=== PATIENT | female | born 1985 | race Caucasian/White ===

== ENCOUNTER 2017-01-25 04:20 | Emergency (ER) | payer MEDICAID ==
[~2017-01-25] VITALS: Ht 157.5 cm; Wt 52.2 kg
[~2017-01-25 04:20] MED LIST: CIPR-173 PO; IBUP800T24 PO; NORPTMEDS CO
[2017-01-25 04:33] VITALS: BP 117/74
[2017-01-25 04:36] LABS: Urine RBC None Seen /hpf (0 - 4)
[2017-01-25 04:52] LABS: Urine Bilirubin Negative (Negative); Urine Blood Negative /uL (Negative); Urine Color Yellow (Yellow); Urine Glucose Normal (Normal); Urine Ketone Negative (Negative); Urine Nitrite Negative (Negative); Urine Squamous Epithelial Cell FEW /hpf (<5); Urine Urobilinogen Normal (Negative)
== END 2017-01-25 05:20 | disposition left against medical advice (07) ==
LOC: ER 04:22
DX: M54.5 Low back pain (principal); R42 Dizziness and giddiness; Z53.21 Procedure and treatment not carried out due to patient leaving prior to being seen by health care provider
CPT/HCPCS: 70450; 74176; 81001; 81025